=== PATIENT | female | born 1965 | race Caucasian/White ===

== ENCOUNTER 2017-12-06 17:18 | Emergency (ER) | payer BC, OTHER ==
[~2017-12-06] VITALS: Ht 160 cm; Wt 112.1 kg
[~2017-12-06 17:18] MED LIST: ATIVAN1 M1 PO; DIAZEPAM10 MG PO; FLEXERIL5 MG PO; LORAZEPAM1 MG PO; PERCOCET 10/1 TABLET PO; PERCOCET 7.5-51 EACH PO; ZESTRIL,PRINIVI10 MG PO
[2017-12-06 18:36] LABS: HEMATOCRIT 36.4 % (36.0-46.0); HEMOGLOBIN 12.4 G/DL (11.9-15.5); MCH 30.1 PG (29.0-34.0); MCHC 34.1 G/DL (30.0-36.0); MCV 88.3 FL (83-99); PLATELET COUNT 277 K/uL (156-360); RBC DIS.WIDTH-CV 12.7 % (11.8-14.6); RED BLOOD COUNT 4.12 M/uL (3.80-5.20); WHITE BLOOD COUNT 6.5 K/uL (4.1-10.2)
[2017-12-06 18:44] LABS: CHLORIDE 106 mEq/L (99-109); POTASSIUM 4.3 mEq/L (3.7-5.4); SODIUM 138 mEq/L (136-147)
[2017-12-06 18:46] LABS: GLUCOSE 109 mg/dL (70-99)
[2017-12-06 18:50] LABS: CREATININE 0.7 mg/dL (0.6-1.3); GFR ESTIMATE (CALCULATED) > 59 mL/min/
[2017-12-06 18:51] LABS: UREA NITROGEN (BUN) 13 mg/dL (9-23)
[2017-12-06 18:56] LABS: TROP-I INTERPRETATION NEGATIVE; TROPONIN-I < 0.01 ng/mL (0.0-0.30)
[2017-12-06] MEDS ORDERED: VENTOLIN HFA18 GM IH (21:50)
[2017-12-06] MEDS ORDERED: PREDNISONE20 MG PO (21:50)
[2017-12-06 22:02] LABS: TROP-I INTERPRETATION NEGATIVE; TROPONIN-I < 0.01 ng/mL (0.0-0.30)
[2017-12-06 22:22] VITALS: BP 123/73
== END 2017-12-06 22:25 | disposition home or self-care (01) ==
LOC: EME 17:18
PROVIDERS: Physician Assistant Medical
DX: J40 Bronchitis, not specified as acute or chronic (principal); G47.30 Sleep apnea, unspecified; F41.9 Anxiety disorder, unspecified; F32.9 Major depressive disorder, single episode, unspecified; Z87.891 Personal history of nicotine dependence
CPT/HCPCS: 71046; 80048; 84484; 85027; 93005; 99281; 99283; J7512

== ENCOUNTER 2017-12-07 02:45 | Emergency (ER) | payer BC, OTHER ==
[~2017-12-07] VITALS: Ht 160 cm; Wt 110.4 kg
[~2017-12-07 02:45] MED LIST changes: +PREDNISONE20 MG PO; +VENTOLIN HFA18 GM IH
[2017-12-07 05:27] LABS: TROP-I INTERPRETATION NEGATIVE; TROPONIN-I 0.01 ng/mL (0.0-0.30)
[2017-12-07 06:03] VITALS: BP 147/76
== END 2017-12-07 06:06 | disposition home or self-care (01) ==
LOC: EME 02:45
PROVIDERS: Emergency Medicine
DX: J40 Bronchitis, not specified as acute or chronic (principal); F41.9 Anxiety disorder, unspecified; R00.0 Tachycardia, unspecified; F32.9 Major depressive disorder, single episode, unspecified; G47.30 Sleep apnea, unspecified; Z87.891 Personal history of nicotine dependence; Z88.8 Allergy status to other drugs, medicaments and biological substances
CPT/HCPCS: 84484; 93005; 99281; 99284